=== PATIENT | female | born 2000 | race Two or more races ===

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

== ENCOUNTER 2022-09-08 00:17 | Emergency (ER) | payer MEDICAID ==
[~2022-09-08] VITALS: Ht 172.7 cm; Wt 84.1 kg
[2022-09-08] MEDS ORDERED: KETOROLAC TROMETH 30 MG/ML 1ML VIAL IM ONE (03:15)
[2022-09-08 03:33] VITALS: BP 128/85
== END 2022-09-08 03:28 | disposition home or self-care (01) ==
LOC: ER 00:17
DX: R51.9 Headache, unspecified (principal)
CPT/HCPCS: 96372; 99283; J1885